=== PATIENT | male | born 1980 | race Caucasian/White ===

== ENCOUNTER 2022-02-17 15:03 | Emergency (ER) | payer OTHER, SELFPAY ==
[2022-02-17 15:07] VITALS: BP 150/63; PULSE 63; RESP 15; TEMP 36.8; O2SAT 100; BMI 25.0
[2022-02-17 15:43] LABS: INR 1.1 (0.9-1.3); Prothrombin Time 12.5 SECONDS (10.1-12.7)
[2022-02-17 15:46] LABS: PTT Partial Thromboplastin Tim 31 SECONDS (26.4-36.2)
[2022-02-17 15:49] LABS: Alanine Aminotransferase 42 IU/L (<50); Albumin 4.6 g/dL (3.5-5.0); Albumin Globulin Ratio 1.4 (1.0-2.8); Alkaline Phosphatase 49 U/L (38-126); Aspartate Aminotransferase 30 IU/L (17-59); BUN Creatinine Ratio 10.9 (6-22); Bilirubin Total 1.6 mg/dL (0.2-1.3); Blood Urea Nitrogen 11 mg/dL (9-20); Calcium 9.2 mg/dL (8.4-10.2); Carbon Dioxide 27 mmol/L (22-32); Chloride 105 mmol/L (98-107); Estimated Glomerular Filt Rate > 60.0 mL/min (>60); Globulin 3.4 g/dL (1.7-4.1); Glucose 106 mg/dL (70-100); HEMOLYSIS < 15 (0-50); Potassium 3.7 mmol/L (3.4-5.1); Sodium 139 mmol/L (137-145)
[2022-02-17 15:57] LABS: Add Manual Diff / Slide Review NO; Basophils Absolute Auto 0 /uL (0-100); Basophils Percent Auto 0.3 % (0-2); Eosinophils Absolute Auto 100 /uL (0-450); Eosinophils Percent Auto 0.8 % (2-4); Hematocrit 45.2 % (41-53); Hemoglobin 15.2 g/dL (13.5-17.5); Lymphocytes Absolute Auto 2100 /uL (1100-4500); Lymphocytes Percent Auto 23.6 % (25-40); Mean Corpuscular HGB Conc 33.6 % (30-36); Mean Corpuscular Hemoglobin 29.1 PG (26-34); Mean Corpuscular Volume 86.5 fL (80-100); Monocytes Absolute Auto 500 /uL (0-900); Monocytes Percent Auto 5.8 % (3-14); Neutrophils Absolute Auto 6000 /uL (1500-7000); Neutrophils Percent Auto 69.5 % (50-75); Platelet Count 202 X10^3/uL (150-400); Red Blood Cell Count 5.23 X10^6/uL (4.5-5.9); Red Cell Distribution Width 13.7 % (11.6-14.8); White Blood Cell Count 8.7 X10^3/uL (4.5-11.0)
[2022-02-17 17:30] VITALS: PULSE 68; O2SAT 99
[2022-02-17 17:31] VITALS: BP 134/71; PULSE 60; O2SAT 100
[2022-02-17 18:00] VITALS: BP 114/65; PULSE 59; O2SAT 99
[2022-02-17 18:30] VITALS: BP 116/69; PULSE 65; O2SAT 99
--- NOTE | 2022-02-17 18:47 | ED.GIBLEED ---
HPI - GI Bleed <Booker Santos PA-C - Last Filed: 02/17/22 19:27> General Chief complaint: GI Bleed Stated complaint: ABD PAIN BLOOD IN STOOL Time Seen by Provider: 02/17/22 18:03 Source: patient Mode of arrival: Ambulatory History of Present Illness HPI Narrative: Patient is a 42-year-old male presenting to the emergency department today for an evaluation of abdominal pain and blood in stool. Patient explains that he began experiencing abdominal cramping yesterday with associated diarrhea and diaphoresis. He states that he began to feel better, however he explains that today he started to experience blood in his stool. He reports four episodes of hematochezia with associated generalized weakness today. Additionally, she reports a history of intermittent left lower quadrant abdominal pain the states he has had for ?quite some time?. Of note, patient states that he usually has about 3 alcoholic drinks per day. He denies fever, chills, chest pain, cough, shortness of breath, nausea, vomiting, constipation, dysuria, hematuria, hematemesis, or any other concerning symptoms. No further concerns were voiced at this time. Related Data Allergies Allergy/AdvReac Type Severity Reaction Status Date / Time No Known Drug Allergies Allergy Verified 02/17/22 15:07 Review of Systems <Booker Santos PA-C - Last Filed: 02/17/22 19:27> Constitutional Constitutional: Denies chills, Denies fatigue, Denies fever(s), Denies frequent falls, Denies lethargy and Reports weakness Eyes Eyes: Denies loss of vision ENT Ears, Nose, Mouth, and Throat: Denies dizziness and Denies neck pain Cardiovascular Cardiovascular: Denies chest pain, Denies irregular heart rhythm, Denies lightheadedness, Denies palpitations, Denies dyspnea, Denies dyspnea on exertion and Denies orthopnea Respiratory Respiratory: Denies cough, Denies dyspnea, Denies dyspnea on exertion and Denies wheezing Gastrointestinal Gastrointestinal: Reports abdominal pain, Reports hematochezia, Denies change in bowel habits, Reports diarrhea, Denies nausea and Denies vomiting Genitourinary Genitourinary: Denies hematuria, Denies flank pain, Denies urinary incontinence and Denies urinary urgency Musculoskeletal Musculoskeletal: Denies back pain, Denies muscle weakness, Denies neck pain, Denies numbness and Denies tingling Integumentary/Breasts Skin/Breast: Denies pruritus, Denies erythema, Denies rash and Denies wounds Neurologic Neurologic: Denies behavioral changes, Denies confusion, Denies dizziness, Denies frequent falls, Denies loss of vision, Denies numbness, Denies tingling and Reports weakness Psychiatric Psychiatric: Denies behavioral changes and Denies confusion Endocrine Endocrine: Denies fatigue and Denies palpitations Allergic/Immunologic Allergic/Immunologic: Denies wheezing Patient History <Booker Santos PA-C - Last Filed: 02/17/22 19:27> Social History Smoking Status: Unknown if ever smoked Smoking Status: Unknown if ever smoked alcohol intake frequency: 3 or more drinks per day Substance Use Type: does not use Exam <Booker Santos PA-C - Last Filed: 02/17/22 19:27> Narrative Exam Narrative: GENERAL: 42 year old patient appears stated age. Well-developed patient, in no acute distress. HEAD: Atraumatic. Normocephalic. EYES: Pupils equal round and reactive. Extraocular motions intact. No scleral icterus. No injection or drainage. ENT: Nose without bleeding, purulent drainage. Throat without erythema, tonsillar hypertrophy or exudate. Airway patent. NECK: Trachea midline. Non tender CARDIOVASCULAR: Regular rate and rhythm without murmurs, gallops, or rubs. RESPIRATORY: Clear to auscultation. Breath sounds equal bilaterally. No wheezes, rales, or rhonchi. GASTROINTESTINAL: Abdomen soft, nondistended. Mild tenderness to palpation appreciated in the left upper and left lower quadrants of the abdomen with no significant rebound or guarding tenderness. No pulsatile masses appreciated. No surgical scars appreciated. Stool guaiac positive on DEISY. EXTREMITIES: No edema or joint tenderness. BACK: Nontender without deformity or crepitance. No flank tenderness. NEURO: AOx3. SKIN: No rash or erythema of visible areas Initial Vital Signs Initial Vital Signs: Vital Signs Temperature 98.2 F 02/17/22 15:07 Pulse Rate 63 02/17/22 15:07 Respiratory Rate 15 02/17/22 15:07 Blood Pressure 150/63 H 02/17/22 15:07 Pulse Oximetry 100 02/17/22 15:07 <DO Shashank Lazar Last Filed: 02/17/22 22:56> Initial Vital Signs Initial Vital Signs: Vital Signs Temperature 98.2 F 02/17/22 15:07 Pulse Rate 63 02/17/22 15:07 Respiratory Rate 15 02/17/22 15:07 Blood Pressure 150/63 H 02/17/22 15:07 Pulse Oximetry 100 02/17/22 15:07 Course <Booker Santos PA-C - Last Filed: 02/17/22 19:27> Course Course Narrative: CBC, CMP, PT/INR, PTT, type and screen, EKG obtained. DEISY stool guaiac positive, Trev Nielsen SKEIN BANDER chaperoned. Orders Ordered: ED Orders 02/17/22 15:18 Complete Blood Count AUTO DIFF Stat Comprehensive Metabolic Panel Stat Partial Thromboplastin Time Stat Prothrombin Time INR Stat Type and Screen Stat Vital Signs Vital signs: Vital Signs - 8 hr 02/17/22 15:07 02/17/22 17:30 02/17/22 17:31 Temperature 98.2 F Pulse Rate 63 68 60 Respiratory Rate 15 Blood Pressure 150/63 H 134/71 Pulse Oximetry 100 99 100 02/17/22 18:00 02/17/22 18:30 Temperature Pulse Rate 59 L 65 Respiratory Rate Blood Pressure 114/65 116/69 Pulse Oximetry 99 99 <Dev Painter DO - Last Filed: 02/17/22 22:56> Orders Ordered: ED Orders 02/17/22 15:18 Complete Blood Count AUTO DIFF Stat Comprehensive Metabolic Panel Stat Partial Thromboplastin Time Stat Prothrombin Time INR Stat Type and Screen Stat Vital Signs Vital signs: Vital Signs - 8 hr 02/17/22 15:07 02/17/22 17:30 02/17/22 17:31 Temperature 98.2 F Pulse Rate 63 68 60 Respiratory Rate 15 Blood Pressure 150/63 H 134/71 Pulse Oximetry 100 99 100 02/17/22 18:00 02/17/22 18:30 Temperature Pulse Rate 59 L 65 Respiratory Rate Blood Pressure 114/65 116/69 Pulse Oximetry 99 99 MDM - GI Bleed <STEVENSON Motley Last Filed: 02/17/22 19:27> Lab Data Result diagrams: 02/17/22 15:18 02/17/22 15:18 Labs: Lab Results 02/17/22 02/17/22 02/17/22 Range/Units 15:18 15:18 15:18 WBC 8.7 (4.5-11.0) X10^3/uL RBC 5.23 (4.5-5.9) X10^6/uL Hgb 15.2 (13.5-17.5) g/dL Hct 45.2 (41-53) % MCV 86.5 (80-100) fL MCH 29.1 (26-34) PG MCHC 33.6 (30-36) % RDW 13.7 (11.6-14.8) % Plt Count 202 (150-400) X10^3/uL Neut % (Auto) 69.5 (50-75) % Lymph % (Auto) 23.6 L (25-40) % [place] % (Auto) 5.8 (3-14) % Eos % (Auto) 0.8 L (2-4) % Baso % (Auto) 0.3 (0-2) % Neut # (Auto) 6000 (6238-3787) /uL Lymph # (Auto) 2100 (7579-7337) /uL [place] # (Auto) 500 (0-900) /uL Eos # (Auto) 100 (0-450) /uL Baso # (Auto) 0 (0-100) /uL PT 12.5 (10.1-12.7) SECONDS INR 1.1 (0.9-1.3) APTT 31 (26.4-36.2) SECONDS Sodium 139 (137-145) mmol/L Potassium 3.7 (3.4-5.1) mmol/L Chloride 105 (98-107) mmol/L Carbon Dioxide 27 (22-32) mmol/L BUN 11 (9-20) mg/dL Creatinine 1.01 (0.66-1.25) mg/dL Estimated GFR > 60.0 (>60) mL/min BUN/Creatinine Ratio 10.9 (6-22) Glucose 106 H (70-100) mg/dL Calcium 9.2 (8.4-10.2) mg/dL Total Bilirubin 1.6 H (0.2-1.3) mg/dL AST 30 (17-59) IU/L ALT 42 (<50) IU/L Alkaline Phosphatase 49 (38-126) U/L Total Protein 8.0 (6.3-8.2) g/dL Albumin 4.6 (3.5-5.0) g/dL Globulin 3.4 (1.7-4.1) g/dL Albumin/Globulin Ratio 1.4 (1.0-2.8) Blood Type Antibody Screen 02/17/22 Range/Units 15:18 WBC (4.5-11.0) X10^3/uL RBC (4.5-5.9) X10^6/uL Hgb (13.5-17.5) g/dL Hct (41-53) % MCV (80-100) fL MCH (26-34) PG MCHC (30-36) % RDW (11.6-14.8) % Plt Count (150-400) X10^3/uL Neut % (Auto) (50-75) % Lymph % (Auto) (25-40) % [place] % (Auto) (3-14) % Eos % (Auto) (2-4) % Baso % (Auto) (0-2) % Neut # (Auto) (0500-9649) /uL Lymph # (Auto) (2847-2010) /uL [place] # (Auto) (0-900) /uL Eos # (Auto) (0-450) /uL Baso # (Auto) (0-100) /uL PT (10.1-12.7) SECONDS INR (0.9-1.3) APTT (26.4-36.2) SECONDS Sodium (137-145) mmol/L Potassium (3.4-5.1) mmol/L Chloride (98-107) mmol/L Carbon Dioxide (22-32) mmol/L BUN (9-20) mg/dL Creatinine (0.66-1.25) mg/dL Estimated GFR (>60) mL/min BUN/Creatinine Ratio (6-22) Glucose (70-100) mg/dL Calcium (8.4-10.2) mg/dL Total Bilirubin (0.2-1.3) mg/dL AST (17-59) IU/L ALT (<50) IU/L Alkaline Phosphatase (38-126) U/L Total Protein (6.3-8.2) g/dL Albumin (3.5-5.0) g/dL Globulin (1.7-4.1) g/dL Albumin/Globulin Ratio (1.0-2.8) Blood Type AB Negative Antibody Screen Negative MDM Narrative Medical decision making narrative: Differential diagnosis to consider but not limited to diverticulitis versus diverticulosis versus hemorrhoids versus colitis versus gastroenteritis versus gastritis versus is duodenal ulcer versus gastric ulcer. Discussed lab studies with patient informed him that no acute abnormality was identified today. I discussed plan to refer the patient for a colonoscopy regarding his guaiac positive stool. I recommended the patient follow-up with his primary care provider within the next 2-3 days for further evaluation. Patient expresses understanding and agrees to plan. He states that this time he is comfortable being discharged home and is stable for discharge. Strict return precautions were discussed with the patient prior to discharge. <Dev Painter, DO - Last Filed: 02/17/22 22:56> Lab Data Labs: Lab Results 02/17/22 02/17/22 02/17/22 Range/Units 15:18 15:18 15:18 WBC 8.7 (4.5-11.0) X10^3/uL RBC 5.23 (4.5-5.9) X10^6/uL Hgb 15.2 (13.5-17.5) g/dL Hct 45.2 (41-53) % MCV 86.5 (80-100) fL MCH 29.1 (26-34) PG MCHC 33.6 (30-36) % RDW 13.7 (11.6-14.8) % Plt Count 202 (150-400) X10^3/uL Neut % (Auto) 69.5 (50-75) % Lymph % (Auto) 23.6 L (25-40) % [place] % (Auto) 5.8 (3-14) % Eos % (Auto) 0.8 L (2-4) % Baso % (Auto) 0.3 (0-2) % Neut # (Auto) 6000 (5672-2886) /uL Lymph # (Auto) 2100 (2899-8876) /uL [place] # (Auto) 500 (0-900) /uL Eos # (Auto) 100 (0-450) /uL Baso # (Auto) 0 (0-100) /uL PT 12.5 (10.1-12.7) SECONDS INR 1.1 (0.9-1.3) APTT 31 (26.4-36.2) SECONDS Sodium 139 (137-145) mmol/L Potassium 3.7 (3.4-5.1) mmol/L Chloride 105 (98-107) mmol/L Carbon Dioxide 27 (22-32) mmol/L BUN 11 (9-20) mg/dL Creatinine 1.01 (0.66-1.25) mg/dL Estimated GFR > 60.0 (>60) mL/min BUN/Creatinine Ratio 10.9 (6-22) Glucose 106 H (70-100) mg/dL Calcium 9.2 (8.4-10.2) mg/dL Total Bilirubin 1.6 H (0.2-1.3) mg/dL AST 30 (17-59) IU/L ALT 42 (<50) IU/L Alkaline Phosphatase 49 (38-126) U/L Total Protein 8.0 (6.3-8.2) g/dL Albumin 4.6 (3.5-5.0) g/dL Globulin 3.4 (1.7-4.1) g/dL Albumin/Globulin Ratio 1.4 (1.0-2.8) Blood Type Antibody Screen 02/17/22 Range/Units 15:18 WBC (4.5-11.0) X10^3/uL RBC (4.5-5.9) X10^6/uL Hgb (13.5-17.5) g/dL Hct (41-53) % MCV (80-100) fL MCH (26-34) PG MCHC (30-36) % RDW (11.6-14.8) % Plt Count (150-400) X10^3/uL Neut % (Auto) (50-75) % Lymph % (Auto) (25-40) % [place] % (Auto) (3-14) % Eos % (Auto) (2-4) % Baso % (Auto) (0-2) % Neut # (Auto) (0969-2731) /uL Lymph # (Auto) (0900-7737) /uL [place] # (Auto) (0-900) /uL Eos # (Auto) (0-450) /uL Baso # (Auto) (0-100) /uL PT (10.1-12.7) SECONDS INR (0.9-1.3) APTT (26.4-36.2) SECONDS Sodium (137-145) mmol/L Potassium (3.4-5.1) mmol/L Chloride (98-107) mmol/L Carbon Dioxide (22-32) mmol/L BUN (9-20) mg/dL Creatinine (0.66-1.25) mg/dL Estimated GFR (>60) mL/min BUN/Creatinine Ratio (6-22) Glucose (70-100) mg/dL Calcium (8.4-10.2) mg/dL Total Bilirubin (0.2-1.3) mg/dL AST (17-59) IU/L ALT (<50) IU/L Alkaline Phosphatase (38-126) U/L Total Protein (6.3-8.2) g/dL Albumin (3.5-5.0) g/dL Globulin (1.7-4.1) g/dL Albumin/Globulin Ratio (1.0-2.8) Blood Type AB Negative Antibody Screen Negative Discharge Plan Departure Patient Disposition: Home Clinical Impression: Abdominal pain, Hematochezia Instructions: DI for Abdominal Pain-Adult Activity Restrictions/Additional Instructions: *You have been diagnosed with abdominal pain, hematochezia *What to do: *Please continue to take your regular medications as directed. [ ] New medication prescriptions sent to your pharmacy: [ ] [ ] New medication written as a paper prescription [X] No new medications given You are evaluated in the emergency department today for abdominal pain and blood in her stool. Lab studies obtained in the emergency department today returned reassuring and well within normal limits. Blood was identified in your stool and I have set up a referral for you to follow-up with a specialist for colonoscopy. I recommend he follow up with the primary care provider within the next 2-3 days for further evaluation. Ensure that you are eating light meals until your symptoms are alleviated. Recommend avoiding fatty or spicy foods, large meals, or alcohol consumption until your symptoms improved. Do not hesitate to return to the emergency department if you experience worsening pain, increased bleeding, dizziness, loss of consciousness, or any other concerning symptoms. *Please follow up with your primary care provider in 2-3 days, call for an appointment. Let them know you were seen in the Emergency Department and that we ask that you be seen in follow up. We will electronically transmit a record of today's note if your PCP is in our system *If you do not have a primary care provider please contact the [facility] Resource line at [phone]. They will ask some questions about your medical history and help get you set up with a doctor in the community. *Return to Emergency Department if you should have any new, worsening or concerning symptoms, such as fever greater than 101 F, shaking chills, worsening pain, persistent vomiting or other bothersome symptoms. Referrals: Yair Diop MD [Physician] - 3-5 days <Dev Painter DO - Last Filed: 02/17/22 22:56> Cosign ED Attending Cosignature Attestation: I was immediately available in the department for consultation. This documentation has been reviewed and I agree with assessment and plan. Supervised by Dev Painter DO
== END 2022-02-17 19:08 | disposition home or self-care (01) ==
PROVIDERS: Emergency Medicine; Emergency Provider Physician Assistant
DX: R10.12 Left upper quadrant pain (principal); R10.32 Left lower quadrant pain; K92.1 Melena
CPT/HCPCS: 36415; 80053; 85025; 85610; 85730; 86850; 86900; 86901; 99283